=== PATIENT | female | born 2000 | race Caucasian/White ===

== ENCOUNTER 2018-06-11 20:24 | Emergency (ER) | payer BC ==
[~2018-06-11] VITALS: Ht 172.7 cm; Wt 59.1 kg
[2018-06-11 20:35] VITALS: BP 133/86; TEMP 97.3
[2018-06-11] MEDS ORDERED: ALDACTONE50 MG PO (21:26)
[2018-06-11] MEDS ORDERED: ALDACTONE 25MG25 M1 PO (21:26)
[2018-06-11 22:20] VITALS: PULSE 81
== END 2018-06-11 22:20 | disposition home or self-care (01) ==
LOC: COL.ER 20:24
DX: S91.312A Laceration without foreign body, left foot, initial encounter (principal); S91.311A Laceration without foreign body, right foot, initial encounter; W26.8XXA Contact with other sharp object(s), not elsewhere classified, initial encounter; Z23 Encounter for immunization